=== PATIENT | male | born 1945 | race Caucasian/White ===

== ENCOUNTER 2018-05-02 13:19 | Emergency (ER) | payer OTHER ==
[~2018-05-02] VITALS: Ht 188 cm; Wt 93.9 kg
[~2018-05-02 13:19] MED LIST: AMBIEN10 MG PO; AMLODIPINE BESYL5 MG PO; ANTIVERT25 MG PO; ASPIRIN81 MG PO; ENALAPRIL MALEA20 MG PO; GLIMEPIRIDE4 MG; GLUCOPHAGE500 MG PO; METFORMIN HCL1000 MG PO; METFORMIN HCL500 MG PO; NIACIN50 MG PO; PANTOPRAZOLE SO40 MG PO; PRAVASTATIN SOD40 MG PO; REGLAN10 MG PO; TAMSULOSIN HCL0.4 MG PO; ZESTORETIC 20-1 EACH PO
--- OUTSIDE RECORDS SUMMARY | 2018-05-02 13:21 | XMS REPORT | Clinical Summary ---
Author Author [facility] Address Unknown Phone Unavailable Care Team Providers Care Account Auditor Name Role Phone Daniel Eli MD PCP Allergies No Known Allergies Medications End Date Status Medication Sig Dispensed Refills Start Date Active pravastatin (PRAVACHOL) Take 20 mg by 0 40 MG tablet mouth daily. Active lisinopril-hydrochlorothi Take 1 tablet 0 azide by mouth (PRINZIDE,ZESTORETIC) daily. 20-12.5 mg per tablet Active metoprolol succinate XL Take 25 mg by 0 (TOPROL-XL) 50 MG 24 hr mouth every tablet other day. Active aspirin (ECOTRIN) 81 MG Take 81 mg by 0 enteric coated tablet mouth daily. Active metFORMIN (GLUCOPHAGE) Take 500 mg 0 500 MG tablet by mouth 2 (two) times a day with meals. Active tamsulosin (FLOMAX) 0.4 Take 0.4 mg 0 mg capsule,extended by mouth release 24hr daily. Active nitroglycerin (NITROSTAT) Place 0.4 mg 0 0.4 MG SL tablet under the tongue every 5 (five) minutes as needed for chest pain. Active zolpidem (AMBIEN) 10 mg Take 5 mg by 0 tablet mouth nightly. Active Problems Problem Noted Date Atrial fibrillation 05/17/2016 Status post aortic valve replacement with bioprosthetic valve during 05/07/2016 current hospitalization Status post two vessel coronary artery bypass 05/07/2016 Aortic valve stenosis 05/05/2016 Coronary artery disease involving [place] coronary artery of [place] heart 05/05/2016 without angina pectoris Type 2 diabetes mellitus without complication 05/05/2016 Essential hypertension 05/05/2016 Family History Medical History Relation Name Comments Cervical cancer Mother Relation Name Status Comments Mother Social History Date Tobacco Use Types Packs/Day Years Used Never Smoker Alcohol Use Drinks/Week oz/Week Comments Yes occasional Sex Assigned at Date Recorded Not on file Industry Job Start Date Occupation Not on file Not on file Not on file Travel End Travel History Travel Start No recent travel history available. Last Filed Vital Signs Not on file Plan of Treatment Health Maintenance Due Date Last Done Comments DIABETIC RETINAL EYE EXAM 1945 DIABETIC FOOT EXAM 1953 URINE MICROALBUMIN 1953 COLON CANCER SCREENING 1993 SHINGRIX VACCINE (#1) 1993 ZOSTER VACCINE 2003 PNEUMOCOCCAL 2008 POLYSACCHARIDE VACCINE AGE 65 AND OVER PNEUMOCOCCAL-13 2008 INFLUENZA VACCINE 01/20/2018 Implants Device Identifier Shelf Expiration Date Model / Serial / Lot Implanted Type [place] Manufactur er [id number] / / Lead Pace Simone Mycrdl Unipol Tmpry Cardiovasc N/A: N/A [employer] Streamline - [id number] [facility] [place] - Implanted: 05/06/2016 (Quantity not Implants CARDIAC on file) SRGRY 6500F / / Lead Pace Simone Mycrdl Unipol Tmpry Cardiovasc N/A: N/A [employer] Streamline - [id number] [facility] [place] - Implanted: 05/06/2016 (Quantity not Implants CARDIAC on file) SRGRY 03/27/2019 E100 29A 00 / [id number] / [id number] Valve Aortc Stntd Tiss Annls W/ Cardiovasc N/A: N/A [facility] ALVARE[employer] Linx Ac Tech 29mm Epic - [id number] [facility] - [id number] Implants HEART Implanted: Qty: 1 on 05/06/2016 by Sam Ward MD S 1100 08LF / / Chamber Sgl Jay Dry Suct 1wy Vlv Surgical N/A: N/A TELEFLEX Adlt Pedi - [id number] Implants; MEDICAL Implanted: 05/06/2016 (Quantity not Expanders; on file) Extenders; Surgical Wires S 1100 08LF / / Chamber Sgl Jay Dry Suct 1wy Vlv Surgical N/A: N/A TELEFLEX Adlt Pedi - [id number] Implants; MEDICAL Implanted: 05/06/2016 (Quantity not Expanders; on file) Extenders; Surgical Wires [id number] / / [place] Perph Vasclr Ptfe [id number] Vascular N/A: N/A BARD 1.65mm - [id number] Graft PERIPHERAL Implanted: 05/06/2016 (Quantity not VASCULAR on file) Results Not on fileafter 05/01/2017 Insurance Payer Benefit Subscriber ID Type Phone Address Plan / Group [employer] TEX[employer] xxxxxxxxx HMO [facility] Advance Directives Patient has advance care planning documents on file. For more information, brie ha contact: Seferino Valadez [address] [place] [address]
--- OUTSIDE RECORDS SUMMARY | 2018-05-02 13:22 | XMS REPORT ---
Author Author [facility] Address Unknown Phone Unavailable Care Team Providers Care Director Funeral Name Role Phone Barrera RAYMOND Unavailable Unavailable Problems This patient has no known problems. Allergies, Adverse Reactions, Alerts This patient has no known allergies or adverse reactions. Medications This patient has no known medications. Results Test Description Test Time Test Comments Text Results Atomic Results Result Comments CHEST SINGLE (PORTABLE) [place] [address] Patient Name: ELAINE GALEAS MR #: [id number] : 1945 Age/Sex: 71/M Req #: [id number] Adm Physician: Ordered by: THELMA RAYMOND MD Report #: [id number] Location: ER Room/Bed: Procedure: [id number] DX/CHEST SINGLE (PORTABLE) Exam Date: 05/04/17 Exam Time: 0705 REPORT STATUS: Signed PROCEDURE: A single AP view of the chest. COMPARISON: Portable chest 10/16/2013. INDICATIONS: DIZZY FINDINGS: Lines/tubes: None. Lungs: The lungs are well inflated and clear. There is no evidence of pneumonia or pulmonary edema. Pleura: There is no pleural effusion or pneumothorax. Heart and mediastinum: The heart and the mediastinum are unremarkable. Atherosclerotic calcifications. Bones: No acute bony abnormality. Median sternotomy wires. Degenerative changes of the thoracic spine. IMPRESSION: No acute radiographic abnormality. Dictated by: Humberto Delaney M.D. on 05/04/2017 at 7:58 Electronically approved by: Humberto Delaney M.D. on 05/04/2017 at 7:58 Dictated By: HUMBERTO DELANEY MD 7 Transcribed By: RIA on 05/04/17757 COPY TO: THELMA RAYMOND MD CT BRAIN WO [place] [address] Patient Name: ELAINE GALEAS MR #: [id number] : 1945 Age/Sex: 71/M Req #: [id number] Adm Physician: Ordered by: THELMA RAYMOND MD Report #: [id number] Location: ER Room/Bed: Procedure: [id number] CT/CT BRAIN WO Exam Date: 05/04/17 Exam Time: 0711 REPORT STATUS: Signed History:Dizziness Comparison studies:CT head 10/16/2013 Technique: Axial images were obtained from the skull base to the vertex. Coronal and sagittal images reconstructed from the axial data. Intravenous contrast: None Findings: Scalp/skull: No abnormalities. Extra-axial spaces: No masses. No fluid collections. Brain sulci: Age-appropriate. Ventricles: Age-appropriate. No hydrocephalus. Parenchyma: Few hypodensities in the supratentorial white matter are small vessel ischemic changes. No masses, hemorrhage, acute or chronic cortical vascular insults. Sellar/suprasellar region: No abnormalities. Craniocervical junction: Patent foramen magnum. No Chiari one malformation. Incidental findings: Atherosclerotic calcifications in the carotid siphons . Impression: No acute abnormalities. Mild supratentorial white matter small vessel ischemic changes. Signed by: DR Andrew Preston M.D. on 05/04/2017 10:54 AM Dictated By: ANDREW REED MD 1054 Transcribed By: RAINE on 05/04/17 1054 COPY TO: THELMA RAYMOND MD
[2018-05-02 13:42] LABS: BASOPHILS % 0.2 % (0.0-1.0); EOSINOPHILS # (AUTO) 0.1 (0.0-0.4); EOSINOPHILS % 1.5 % (0.0-6.0); HEMATOCRIT 42.5 % (38.2-49.6); HEMOGLOBIN 14.2 g/dL (14.0-18.0); LYMPHOCYTES # (AUTO) 1.6 (1.0-3.2); LYMPHOCYTES % 19.9 % (18.0-39.1); MEAN CORPUSCULAR HEMOGLOBIN 30.1 pg (28-32); MEAN CORPUSCULAR HGB CONC 33.4 g/dL (31-35); MONOCYTES # (AUTO) 0.4 (0.2-0.8); MONOCYTES % 5.5 % (4.4-11.3); NEUTROPHILS # (AUTO) 5.9 (2.1-6.9); NEUTROPHILS % 72.8 % (38.7-80.0); PLATELET COUNT 218 x10e3/uL (140-360); RED BLOOD COUNT 4.72 x10e6/uL (4.3-5.7); RED CELL DISTRIBUTION WIDTH 12.4 % (11.7-14.4)
[2018-05-02 13:47] LABS: BILIRUBIN,URINE NEGATIVE (NEGATIVE); CLARITY,URINE HAZY (CLEAR); COLOR,URINE YELLOW (YELLOW); KETONES,URINE TRACE (NEGATIVE); LEUKOCYTE ESTERASE ,URINE NEGATIVE (NEGATIVE); NITRITE,URINE NEGATIVE (NEGATIVE); PROTEIN,URINE DIPSTICK NEGATIVE (NEGATIVE); URINE UROBILINOGEN 0.2 mg/dL (0.2 - 1)
[2018-05-02 13:49] LABS: BACTERIA,URINE FEW /HPF; EPITHELIAL CELLS,URINE FEW /LPF; RBC,URINE 0-5 /HPF (0-5); WBC,URINE (MAN) 0-5 /HPF (0-5)
[2018-05-02 13:52] LABS: INR 0.94; PARTIAL THROMBOPLASTIN TIME 28.8 seconds (23.8-35.5); PROTHROMBIN TIME 13.4 seconds (11.9-14.5)
[2018-05-02 14:01] LABS: ALANINE AMINOTRANSFERASE 18 IU/L (0-55); ALBUMIN 3.7 g/dL (3.5-5.0); ALBUMIN/GLOBULIN RATIO 1.4 (0.8-2.0); ALKALINE PHOSPHATASE 50 IU/L (40-150); BLOOD UREA NITROGEN 17 mg/dL (7-26); BUN/CREATININE RATIO 20 (6-25); CALCIUM 9.1 mg/dL (8.4-10.2); CARBON DIOXIDE 28 mmol/L (22-29); CHLORIDE 104 mmol/L (98-107); CREATINE KINASE 141 IU/L (30-200); CREATININE, SERUM 0.84 mg/dL (0.72-1.25); EST GLOMERULAR FILTRATION RATE > 60 ML/MIN (60-); GLUCOSE 176 mg/dL (74-118); SODIUM 141 mmol/L (136-145)
[2018-05-02] MEDS ORDERED: SODIUM CHLORIDE 0.9% 1000ML 1,000 ML IV STA (14:18)
--- NOTE | 2018-05-02 15:00 | Diagnostic Imaging Report ---
EXAMINATION: CHEST SINGLE (PORTABLE) INDICATION: ^CHEST PAIN ^[id number] ^1400 ^Y COMPARISON: 05/04/2017 FINDINGS: AP view TUBES and LINES: None. LUNGS: Lungs are well inflated. Lungs are clear. There is no evidence of pneumonia or pulmonary edema. PLEURA: No pleural effusion or pneumothorax. HEART AND MEDIASTINUM: The cardiomediastinal silhouette is unremarkable. Median sternotomy wires are again seen. BONES AND SOFT TISSUES: No acute osseous lesion. Soft tissues are unremarkable. UPPER ABDOMEN: No free air under the diaphragm. IMPRESSION: No acute thoracic abnormality. Signed by: Dr. Hair Feldman MD on 05/02/2018 2:57 PM
[2018-05-02 15:29] VITALS: BP 148/72
== END 2018-05-02 15:41 | disposition home or self-care (01) ==
LOC: ER 13:19
DX: R07.89 Other chest pain (principal); I10 Essential (primary) hypertension; E11.9 Type 2 diabetes mellitus without complications; G20 Parkinson's disease; I25.10 Atherosclerotic heart disease of native coronary artery without angina pectoris; Z95.1 Presence of aortocoronary bypass graft
CPT/HCPCS: 36415; 71045; 80053; 81001; 82550; 82553; 83880; 84484; 85025; 85610; 85730; 93005; 99284